=== PATIENT | male | born 1990 | race Caucasian/White ===

== ENCOUNTER 2020-08-19 21:41 | Emergency (ER) | payer MEDICAID, SELFPAY ==
--- NOTE | ~2020-08-19 | CT_ITS ---
EXAMINATION: CT ABDOMEN AND PELVIS WITHOUT CONTRAST CLINICAL INFORMATION: Left flank pain COMPARISON: None TECHNIQUE: Multidetector volumetric imaging was performed from the superior aspect of the liver through the pubic symphysis. Sagittal and coronal reformatted images were obtained on the technologist's workstation. This CT examination was performed using dose optimization techniques as appropriate, variously including the following: *Automated exposure control *Adjustment of mA and/or kV according to patient size (this includes techniques or standardized protocols for targeted exams where dose is matched to indication/reason for exam; i.e. extremities or head) *Use of iterative reconstruction technique DLP: 299 mGy-cm FINDINGS: LUNG BASES: The visualized lung bases are unremarkable. LIVER, GALLBLADDER, AND BILIARY TREE: The liver is normal in size, shape, and attenuation. No focal hepatic lesion or biliary ductal dilatation is present. The gallbladder is unremarkable with no evidence of radiopaque gallstones, gallbladder wall thickening, or obvious pericholecystic inflammatory changes. PANCREAS: Unremarkable. SPLEEN: Unremarkable. ADRENAL GLANDS: Unremarkable. KIDNEYS AND URETERS: The kidneys are normal in size, shape, and attenuation. At least 3 nonobstructing calculi are present in the right kidney the largest at the lower pole measuring about 4 mm in size. On the left, no intrarenal calculi are seen but there is an obstructing stone present in the distal ureter measuring 5 x 2.3 x 4 mm. The stone measures 1136 Hounsfield units. There is associated moderate dilatation of the left ureter above this level as well as the intrarenal collecting system on the left. No renal masses are seen. BLADDER: Empty and thick-walled GASTROINTESTINAL TRACT: The small and large bowel are unremarkable. The appendix is unremarkable. ABDOMINAL WALL: No significant hernia is appreciated. LYMPH NODES: No retroperitoneal lymphadenopathy seen. VASCULAR: The left renal vein is retroaortic. PELVIC VISCERA: There is mild prostatic prominence with dense central calcification. The seminal vesicles are unremarkable. OSSEOUS STRUCTURES: Unremarkable. CT/CT abdomen pelvis wo con IMPRESSION: Obstructing 5.0 x 2.3 x 4.0 mm distal left ureteral calculus. Nonobstructing smaller intrarenal calculi on the right.
[2020-08-19 21:46] VITALS: BP 168/102; PULSE 101; RESP 16; TEMP 36.8; O2SAT 100; BMI 21.4
--- NOTE | 2020-08-19 22:28 | ED_ITS ---
HPI - Abdominal Pain General Chief Complaint: Abdominal Pain Stated Complaint: Left lower abd pain Time Seen by Provider: 08/19/20 22:25 Source: patient Mode of arrival: ambulatory Limitations: no limitations History of Present Illness HPI narrative: 30-year-old male history of kidney stones presented with left flank pain radiates to the left groin area, pain started earlier today, describes the pain as left flank area radiated down to the left groin area, pain is colicky in nature, nothing make it better or make it worse, patient claims that he passed 2 small stones today. Patient had similar pain in the past which was a kidney stones. Related Data Allergies Allergy/AdvReac Type Severity Reaction Status Date / Time No Known Allergies Allergy Unverified 02/04/20 16:13 Review of Systems Review of Systems All other systems are reviewed and are negative Constitutional: Reports as per HPI and Reports no additional constitutional complaints Eyes: Reports as per HPI and Reports no additional eye complaints Reports system reviewed and no additional complaints, except as documented Cardiovascular: Reports as per HPI and Reports no additional cardiovascular complaints Respiratory: Reports as per HPI and Reports no additional respiratory complaints Gastrointestinal: Reports as per HPI and Reports no additional gastrointestinal complaints Genitourinary: Reports no additional female genitourinary complaints Musculoskeletal: Reports no additional musculoskeletal complaints Skin/Breast: Reports system reviewed and no additional complaints, except as docu Psychiatric: Reports no additional psychiatric complaints Endocrine: Reports no additional endocrine complaints Hematologic/Lymphatic: Reports no additional hematologic/lymphatic complaints Allergic/Immunologic: Reports no additional allergic/immunologic complaints Reports system reviewed and no additional complaints, except as documented and Reports Abnormal speech present Physical Exam Vital Signs: Vital Signs: Last Vital Signs Temp 98.2 F 08/19/20 21:46 Pulse 101 H 08/19/20 21:46 Resp 16 08/19/20 21:46 BP 168/102 H 08/19/20 21:46 Pulse Ox 100 08/19/20 21:46 Body Mass Index 21.4 Vital signs have been reviewed as appeared to be correct. Blood pressure elevated. Heart rate elevated. Respiration rate normal. Temperature normal. Oxygen saturation normal. Appearance: Alert. Oriented X3. No acute distress. Head: Normal external exam. Normocephalic. Atraumatic. No Hemphill signs noted. No raccoon eyes noted Eyes: PERRLA. EOMI. Conjunctiva and sclera normal. Eyelids normal. ENT: TM's Normal. Pharynx normal. Uvula midline. Moist mucous membranes. No trismus noted. No drooling noted. No muffled voice noted. Neck: Normal inspection. Neck supple. FROM. No adenopathy. Thyroid Normal. No meningeal signs. No neck mass noted. CVS: Normal heart rate and rhythm. Heart sound normal. No murmurs noted. Pulses normal throughout. Respiratory: No respiratory distress. Painless inspiration. Breath sounds normal. No wheezes/rales/rhonchi noted. Chest nontender. No accessory muscle usage noted or decreased air movement noted. Abdomen: Soft and nontender. Bowel sounds normal in all 4 quadrants. No distention noted. No organomegaly noted. No visible injury noted. Back: Mild left CVA tenderness. Full range of motion noted. Skin: Skin warm and dry. Normal skin color. Normal skin turgor. No rashes/lesions/lacerations noted. Extremities: No lower extremity edema. Extremities exhibit normal range of mot ion. Extremities nontender. Neuro: Oriented X 3. No motor deficit. No sensory deficit. Reflexes normal. Course Course Course Narrative: Assessment and plan. 30-year-old male history of kidney stones presented with left flank pain radiating down to the left groin areas, CT of the abdomen pelvis is consistent with 5 mm left distal ureteral obstructing stone. Patient was given the option with her to be admitted for pain management and seen by urologist tomorrow morning versus going home with pain medication and drinking plenty of fluid and keep monitoring his pain, patient opted to to be discharged home was in the pain medication and follow-up as an outpatient with Dr. Bermudez. MDM - Abdominal Pain Lab Data Result diagrams: 08/19/20 23:01 08/19/20 23:01 Labs: Lab Results 08/19/20 08/19/20 Range/Units 23:01 23:01 WBC 12.5 H (4.8-10.8) X10*3/uL RBC 5.31 (4.60-5.80) X10*6/uL Hgb 16.7 (14.0-18.0) g/dl Hct 47.6 (42-52) % MCV 89.6 (80-98) fL MCH 31.5 (27.0-33.0) pg MCHC 35.1 (31.0-36.0) g/dl RDW 11.9 (11.0-16.0) % Plt Count 277 (160-400) X10*3/uL MPV 10.5 (9.4-12.4) fL Immature Gran % (Auto) 0.2 (0.0-0.4) % Neut % (Auto) 88.8 H (45-73) % Lymph % (Auto) 5.3 L (20-40) % [place]ardo % (Auto) 5.2 (2-11) % Eos % (Auto) 0.1 (0-4) % Baso % (Auto) 0.4 (0-2) % Lymph # (Auto) 0.7 L (1.2-4.9) X10*3/uL [place]ardo # (Auto) 0.7 (0.1-1.2) X10*3/uL Eos # (Auto) 0.0 (0.0-0.4) X10*3/uL Baso # (Auto) 0.1 (0.0-0.2) X10*3/uL Abs Immat Gran (auto) 0.03 (0.00-0.03) X10*3/uL Absolute Neuts (auto) 11.1 H (2.0-8.3) X10*3/uL Absolute Nucleated RBC 0.000 (0.0-0.012) X10*3/uL Nucleated RBC % (auto) 0.0 (0.0-0.2) /100WBC Urine Color YELLOW Urine Appearance HAZY Urine pH 8.0 (5.0-8.0) Ur Specific [place] 1.020 (1.005-1.025) Urine Protein NEG (NEG-TRACE) MG/DL Urine Glucose (UA) NEG (NEG) MG/DL Urine Ketones 40 (NEG) MG/DL Urine Blood 3+ H (NEG) Urine Nitrite NEG (NEG) Ur Leukocyte Esterase NEG (NEG) Urine RBC 76-150 H (0) /HPF Urine WBC 1-4 (0-4) /HPF Ur Squamous Epith Cells NONE /LPF Amorphous Sediment 2+ /LPF Urine Bacteria NONE /LPF Granular Casts 0-2 /LPF Urine Mucus 1+ /LPF Discharge Plan Discharge Clinical Impression: Calculus of kidney, Calculi, ureter Patient Disposition: Home, Self-Care Instructions: Kidney Stones (ED) Referrals: Jas Bermudez MD [Physician] - 2 days PMFSH Past Medical History Medical History Asthma Seizure Social History Social History Advance Directives: No Advance Directives Information Provided: Yes
[2020-08-19] MEDS: Ketorolac Tromethamine 15 MG/ML VIAL IV (23:07)
[2020-08-19] MEDS: 0.9 % Sodium Chloride 1,000 ML 999 ML IVCONT (23:08)
[2020-08-19 23:09] LABS: Basophils Absolute Auto 0.1 X10*3/uL (0.0-0.2); Basophils Percent Auto 0.4 % (0-2); Eosinophils Percent Auto 0.1 % (0-4); Hematocrit 47.6 % (42-52); Hemoglobin 16.7 g/dl (14.0-18.0); Imm Gran Abs Auto 0.03 X10*3/uL (0.00-0.03); Imm Gran Pct Auto 0.2 % (0.0-0.4); Lymphocytes Absolute Auto 0.7 X10*3/uL (1.2-4.9); Lymphocytes Percent Auto 5.3 % (20-40); MANUAL DIFF FLAG NO; Mean Corpuscular HGB Conc 35.1 g/dl (31.0-36.0); Mean Corpuscular Hemoglobin 31.5 pg (27.0-33.0); Mean Corpuscular Volume 89.6 fL (80-98); Mean Platelet Volume 10.5 fL (9.4-12.4); Monocytes Absolute Auto 0.7 X10*3/uL (0.1-1.2); Monocytes Percent Auto 5.2 % (2-11); Neutrophils Absolute Auto 11.1 X10*3/uL (2.0-8.3); Neutrophils Percent Auto 88.8 % (45-73); Platelet Count 277 X10*3/uL (160-400); Red Blood Count 5.31 X10*6/uL (4.60-5.80); Red Cell Distribution Width 11.9 % (11.0-16.0); SCAN SMEAR FLAG 1; White Blood Count 12.5 X10*3/uL (4.8-10.8)
[2020-08-19 23:13] LABS: Appearance Urine HAZY; Color Urine YELLOW; Glucose Urine UA NEG (NEG); Leukocyte Esterase Urine NEG (NEG); Nitrite Urine NEG (NEG); Urine Blood 3+ (NEG); Urine Ketones 40 MG/DL (NEG); Urine Protein NEG (NEG-TRACE)
[2020-08-19 23:36] LABS: Amorphous Sediment Urine 2+ /LPF; Granular Casts Urine 0-2 /LPF; Mucus Urine 1+ /LPF
[2020-08-20] MEDS: oxyCODONE HCl Immed Release 5 MG TABLET PO (00:45)
[2020-08-20 00:52] LABS: Alanine Aminotransferase 16 U/L (0-40); Albumin Level 4.7 g/dL (3.5-5.0); Alkaline Phosphatase 45 U/L (39-117); Anion Gap 15 (12-20); Aspartate Amino Transferase 14 U/L (5-37); Bilirubin Direct 0.3 mg/dL (0.0-0.5); Bilirubin Total 0.4 mg/dL (0.0-1.0); Blood Urea Nitrogen 13 mg/dL (9-16); Calcium 8.6 mg/dL (8.4-10.2); Carbon Dioxide 22 mmol/L (22-29); Chloride 106 mmol/L (96-108); Creatinine Clr Calc Pharmacy 113.6; Estimated Glomerular Filt Rate > 60; Glucose Random 113 mg/dL (60-115); Lipase 21 U/L (8-78); Potassium 3.5 mmol/L (3.3-5.1); Sodium 139 mmol/L (135-145); Total Protein 6.5 g/dL (6.5-8.0)
== END 2020-08-20 01:40 | disposition home or self-care (01) ==
PROVIDERS: Emergency Provider Emergency Medicine; PCP Nurse Practitioner Family
DX: N20.2 Calculus of kidney with calculus of ureter (principal); Z87.442 Personal history of urinary calculi
CPT/HCPCS: 36415; 74176; 80048; 80076; 81001; 83690; 85025; 96361; 96374; 99283; 99284; J1885

== ENCOUNTER → 2020-08-24 13:23 | Outpatient (BNVA) | payer MEDICAID, SELFPAY | PROVIDERS: PCP Nurse Practitioner Family; Visit Provider Urology ==

== ENCOUNTER 2020-08-29 11:35 | Day surgery (SDC) | payer MEDICAID, SELFPAY ==
--- NOTE | 2020-08-26 14:41 | HO.ANESPROP2 ---
Documented by User: Lenora Woodney 08/26/20 14:42 HPI - Anesthesia Eval Consult details Narrative: 30yo M for Left Cystoscopy, Ureteroroscopy, Retro, Laser prn opioid PMFSH Active Problems Active Problems: All Active Problems (Updated 08/24/20 @ 13:35 by Jas Bermudez MD) Nephrolithiasis (Acute) Past Medical History Medical History Asthma Seizure Social History Social History Smoking Status: Never smoker Use of substances other than those prescribed or required for medical reasons: No Advance Directives: No Advance Directives Information Provided: Yes Advance Directives on File: No Meds Allergies Allergy/AdvReac Type Severity Reaction Status Date / Time No Known Allergies Allergy Verified 08/29/20 12:33 Home Medications Medication Instructions Recorded Confirmed Last Taken Type topiramate 2 tab PO BID 08/29/20 08/29/20 08/29/20 08:00 History Exam Exam Date and Time: August 26, 2020 1441 Pertinent Lab Results Pertinent Lab Results: Laboratory Tests 08/19/20 08/20/20 23:01 00:24 WBC 12.5 H Hgb 16.7 Hct 47.6 Plt Count 277 Sodium 139 Potassium 3.5 Chloride 106 Carbon Dioxide 22 BUN 13 Creatinine 0.85 Assessment and Plan Assessment Anesthesia Assessment: Chart Reviewed Documented by User: Hawk Israel MD 08/29/20 15:11 PMFSH Past Medical History Medical History Asthma Seizure Social History Social History Smoking Status: Never smoker Use of substances other than those prescribed or required for medical reasons: No Advance Directives: No Advance Directives Information Provided: Yes Advance Directives on File: No Meds Allergies Allergy/AdvReac Type Severity Reaction Status Date / Time No Known Allergies Allergy Verified 08/29/20 12:33 Home Medications Medication Instructions Recorded Confirmed Last Taken Type topiramate 2 tab PO BID 08/29/20 08/29/20 08/29/20 08:00 History Exam Airway Mallampati Class: II TM Dist: >3cm Neck ROM: Full Loose/Missing/Broken Teeth: No Heart: RRR, hypertensive Other: Redness on neck and fingers, unclear why, denies itching, no meds given so far Assessment and Plan Assessment Anesthesia Assessment: Anesthesia Plan Discussed and Chart Reviewed Final Anesthetic Review NPO: Yes ASA Class: II Final Preanesthetic Review: No Changes in Pt Med Stat, Meds/Allgs Chart Reviewed, Consent Obtained/Reviewed and Anes Risks/Benef Reviewed Patient Risk: Low Procedure Risk: Low Anesthetic Plan Anesthetic Plan: GA Disposition: Standard PACU
[2020-08-29] VITALS (11 sets, daily range): BP systolic 147–170; BP diastolic 100–117; PULSE 70–89; RESP 12–20; TEMP 36.2–37.4; O2SAT 96–100; BMI 21.2
--- NOTE | ~2020-08-29 | FL_ITS ---
EXAMINATION: XR FLUOROSCOPY WITH IMAGES CLINICAL INFORMATION: Left ureteral stone COMPARISON: Previous CT of the abdomen and pelvis 08/19/2020 TECHNIQUE: Fluoroscopy performed by Dr. Jas Bermudez. Fluoroscopy time: 38 seconds Dose: 6.4 mgy Images: 2 FINDINGS: Initial image demonstrates contrast opacification of the left distal ureter. There is a small round filling defect in the left distal ureter questionable for stone versus air bubble. Final image demonstrates the distal end of a left internal ureteral stent. FL/FL guidance in OR IMPRESSION: Fluoroscopy guidance for left retrograde exam and internal ureteral stent placement.
[2020-08-29] MEDS: Lactated Ringers 1,000 ML 100 ML IVCONT (12:36)
[2020-08-29] MEDS: levoFLOXacin 500 MG TABLET PO (16:19)
--- NOTE | 2020-08-29 16:23 | PC.NURSE ---
message sent to anesthesia dr. ventura to report patient complaint -11/26. await new orders
[2020-08-29] MEDS: HYDROmorphone HCl 0.5 MG/0.5 ML SYRINGE IVPUSH (16:36)
--- NOTE | 2020-08-29 16:36 | MHC.SHP ---
Pre-Procedural Eval Section A The patient is an INPATIENT: No Changes since office visit: No Cold of Flu in the past 2 weeks, No New Medical Problems, No Changes in Medication and No Patient answered all questions The History & Physical has been completed within 30 days and I have reviewed it.: Yes Section B Chief Complaint: calculus of kidney Allergies: Allergies Allergy/AdvReac Type Severity Reaction Status Date / Time No Known Allergies Allergy Verified 08/29/20 12:33 Plan Diagnosis/Plan: Unchanged (Left retrograde, ureteroscopy laser lithotripsy stone basketing stent) I have reviewed the history and physical and performed a pertinent physical examination on my patient. No changes have occurred unless specified.
--- NOTE | 2020-08-29 17:31 | P.OP_ITS ---
Operative Note Operative Note Date of Service: 08/29/20 Narrative: PreOperative Diagnosis: Distal left ureteric stone Post Operative Diagnosis: Distal left ureteric stone Procedure: - cystoscopy, left retrograde - left dilatation of ureteric orifice under fluoroscopy - left ureteroscopy, laser lithotripsy, stone basketing - left stent placement Surgeon: Dr Jas Bermudez Anesthesia: General Indications for procedure: 30-year-old male. Initial presentation for stones with distal left ureteric stone. Trial of medical expulsion therapy. Unsuccessful with passage of stone. Recommend ureteroscopy laser lithotripsy and stent placement due to location of stone in distal portion of the ureter. He is aware of the risks and benefits. Procedure: After informed consent was verified patient was brought to the operating placed in supine position. Anesthesia was administered per protocol. Patient was placed in modified dorsal lithotomy position and prepped and draped in a sterile fashion. Safety pause time-out and side of surgery confirmed. Antibiotics confirmed. Twenty-two Montenegrin cystoscope inserted per urethra. Left ureteric orifice seen and cannulated. Filling defect seen in distal portion of left ureter approximately [address] finding of distal left ureteric stone. Sensor guidewire was placed. Rigid cystoscope was removed. A rigid ureteral scope was placed alongside the wire. We were unable to empty the ureteric orifice. The rigid ureteral scope was removed. The ureteric orifice was dilated using a Alf dilator under fluoroscopy. The rigid ureteral scope was then placed again and able to place alongside the wire. The stone was encountered. Using a holmium laser the stone was broken into small pieces. Using a flat wire basket pieces of the stone was able to be removed will be sent for pathology. The 22 Montenegrin cystoscope was back loaded over the wire and advanced into the bladder. A 6 Mont[place]grin by 24 cm double-J stent was placed over the wire up to the level the renal pelvis with good coil seen in the renal pelvis and in the bladder. The bladder was emptied. Chu tolerated the procedure well was extubated in the operating room transferred in stable condition to the recovery area. Pathology: Stones Drains: Left 6 Montenegrin by 24 cm double-J catheter
[2020-08-29] MEDS: Phenazopyridine HCL 100 MG TABLET PO (17:59)
--- NOTE | 2020-08-29 18:43 | PC.NURSE ---
patient reports urge to void oob ambulated to bathroom steady gait. voided moderate amount red tinged urine states I feel so much better no complaints of pain. ambulating steady gait. neuro status stable no neuro deficits no headache
--- NOTE | 2020-08-29 18:54 | PC.NURSE ---
family mother, ira, updated per patient request. patient indicated no further pain, urge to void or anxiety. no headache noted. dr. hendricks made aware b/p elevated pre-op and post operatively review of trends. dr. hendricks at bedside to evaluate the patient per m.nai. may discharge home.
--- NOTE | 2020-08-29 19:18 | PC.NURSE ---
1915 reviewed with family important monitor b/p and follow-up with pcp if remains elevated. review plan for home medications and prescriptions
[2020-09-02 22:03] LABS: Stone Source LEFT KIDNEY STONE
== END 2020-08-29 19:19 | disposition home or self-care (01) ==
PROVIDERS: PCP Nurse Practitioner Family; Visit Provider Urology
PROC: (CPT 52356; principal; 2020-08-29 13:30)
DX: N20.1 Calculus of ureter (principal); J45.909 Unspecified asthma, uncomplicated; Z79.899 Other long term (current) drug therapy
CPT/HCPCS: 52356; 82365; 88300; C1769; C2617; J0131; J1100; J1170; J1885; J2250; J2405; Q9967

== ENCOUNTER → 2020-09-09 10:15 | Outpatient (BNVA) | payer MEDICAID, SELFPAY | PROVIDERS: PCP Nurse Practitioner Family; Visit Provider Urology | DX: N20.0 Calculus of kidney (principal) | CPT/HCPCS: 52310; 81002; 99212 ==

== ENCOUNTER 2020-10-26 14:05 | Outpatient (REF) | payer MEDICAID, SELFPAY ==
--- NOTE | ~2020-10-26 | US_ITS ---
EXAMINATION: US RETROPERITONEAL LIMITED (RENAL ONLY) CLINICAL INFORMATION: Calculus of kidney. COMPARISON: CT abdomen and pelvis 08/19/2020 TECHNIQUE: Real-time imaging of the kidneys. FINDINGS: RIGHT KIDNEY: 12.9 x 4.3 x 5.9 cm (SAG x AP x TRV). The kidney is normal in size, contour, and echogenicity. Renal cortical thickness is normal. There are three small 2 to 3 mm echogenic densities with twinkle artifact suggestive of small stones. There is a 1 x 0.7 x 1 cm cyst in the lower pole. No hydronephrosis. LEFT KIDNEY: 12.1 x 4.4 x 5.7 cm (SAG x AP x TRV). The kidney is normal in size, contour, and echogenicity. Renal cortical thickness is normal. There is a 2 mm echogenic density in the lower pole with twinkle artifact suggestive of a small stone. The upper pole caliectasis. No focal parenchymal lesions. US/US renal BI IMPRESSION: Small bilateral renal stones. Left upper pole caliectasis. Small right renal cyst...
== END 2020-10-26 14:06 | disposition home or self-care (01) ==
LOC: HO.HMGCX 14:05
PROVIDERS: PCP Nurse Practitioner Family; Visit Provider Urology
DX: N20.0 Calculus of kidney (principal)
CPT/HCPCS: 76775

== ENCOUNTER → 2021-01-24 13:56 | Outpatient (BNVA) | payer MEDICAID, SELFPAY | PROVIDERS: PCP Nurse Practitioner Family; Visit Provider Urology ==